=== PATIENT | male | born 1930 | race Caucasian/White ===

== ENCOUNTER 2016-10-16 12:35 | Emergency (ER) | payer MEDICARE, BC ==
[~2016-10-16] VITALS: Ht 172.7 cm; Wt 55.8 kg
[2016-10-16 12:35] VITALS: BP 108/80
[~2016-10-16 12:35] MED LIST: ANAPROX DS550 MG PO; ASPIRIN325 MG; AUGMENTIN 875 M1 TAB PO; CLONIDINE0.2 MG PO; FLOMAX0.4 MG; LISINOPRIL20 MG; LOPRESSOR25 MG; LORAZEPAM0.5 MG; SAW PALMETTO160 M1; VITAMINS; WARFARIN SOD5 MG
[2016-10-16] MEDS ORDERED: ASPIRIN81 M1 PO (12:44)
[2016-10-16] MEDS ORDERED: ATIVAN0.5 MG PO (12:45)
[2016-10-16] MEDS ORDERED: LISINOPRIL5 MG PO (12:46)
[2016-10-16] MEDS ORDERED: FLOMAX0.4 MG PO (12:46)
[2016-10-16] MEDS ORDERED: FLONASE ALLERG9.9 ML NAS (12:47)
[2016-10-16] MEDS ORDERED: AUGMENTIN 875875 MG PO (13:05)
[2016-10-16] MEDS ORDERED: ULTRAM50 MG PO (13:40)
== END 2016-10-16 13:51 | disposition home or self-care (01) ==
LOC: ED 12:35
DX: S71.111A Laceration without foreign body, right thigh, initial encounter (principal); Z98.890 Other specified postprocedural states; Z79.82 Long term (current) use of aspirin; Z88.6 Allergy status to analgesic agent; Z88.8 Allergy status to other drugs, medicaments and biological substances; W55.12XA Struck by horse, initial encounter; Y93.89 Activity, other specified; Y92.89 Other specified places as the place of occurrence of the external cause; Y99.9 Unspecified external cause status

== ENCOUNTER → 2016-10-25 | Outpatient (CLI) | payer MEDICARE, BC ==
[~2016-10-25] MED LIST changes: +ASPIRIN81 M1 PO; +ATIVAN0.5 MG PO; +AUGMENTIN 875875 MG PO; +FLOMAX0.4 MG PO; +FLONASE ALLERG9.9 ML NAS; +LISINOPRIL5 MG PO; +ULTRAM50 MG PO
[2016-10-25 12:38] LABS: IRON 83 ug/dL (65-175); IRON SATURATION 34 %; UIBC 156 ug/dL (110-410)
[2016-10-25 13:28] LABS: FOLIC ACID > 24.00 ng/mL (>5.38)
== END | disposition home or self-care (01) ==
LOC: LAB 11:22
PROVIDERS: Internal Medicine
DX: D64.9 Anemia, unspecified (principal)

== ENCOUNTER → 2016-10-31 | Outpatient (CLI) | payer MEDICARE, BC | END | disposition home or self-care (01) | LOC: US 13:00 | DX: S80.11XA Contusion of right lower leg, initial encounter (principal); M79.89 Other specified soft tissue disorders; X58.XXXA Exposure to other specified factors, initial encounter; Y93.89 Activity, other specified; Y92.89 Other specified places as the place of occurrence of the external cause; Y99.8 Other external cause status ==

== ENCOUNTER 2017-01-08 21:41 | Emergency (ER) | payer MEDICARE, BC ==
[~2017-01-08] VITALS: Ht 172.7 cm; Wt 54.9 kg
[2017-01-08] MEDS ORDERED: LEXAPRO10 MG PO (21:57)
[2017-01-08 22:24] LABS: BASO % 0.6 % (0.0-1.0); EOS # 0.2 10*3/uL (0.0-0.4); HEMATOCRIT 38.4 % (42.0-52.0); HEMOGLOBIN 12.5 g/dl (14.0-18.0); LYMPH # 2.6 10*3/uL (1.3-4.4); LYMPH % 40.8 % (27.0-41.0); MEAN CELL VOLUME 92.3 fl (80.0-94.0); MEAN CORPUSCULAR HGB CONC 32.6 g/dl (33.0-37.0); MONO # 0.8 10*3/uL (0.1-1.0); MONO % 12.2 % (3.0-9.0); NEUT # 2.8 10*3/uL (2.3-7.9); NEUT % 43.2 % (47.0-73.0); PLATELET COUNT AUTOMATED 159 10*3/uL (130-400); RED BLOOD COUNT 4.16 10*6/uL (4.50-5.90); RED CELL DISTRI WIDTH 13.4 % (0-14.5); WHITE BLOOD COUNT 6.4 10*3/uL (4.8-10.8)
[2017-01-08 22:34] LABS: PROTHROMBIN TIME 10.7 SECONDS (9.0-12.4)
[2017-01-08 22:40] LABS: ALBUMIN 3.6 gm/dl (3.1-4.5); ALKALINE PHOSPHATASE 85 U/L (45-117); BILIRUBIN, TOTAL 0.3 mg/dl (0.2-1.0); BUN 42 mg/dl (7-24); CARBON DIOXIDE 26 mmol/L (21-32); CHLORIDE 104 mmol/L (98-107); EST GLOM FILT AFRICAN AMERICAN > 60 ml/min; GLUCOSE 111 mg/dL (65-99); MAGNESIUM 2.2 mg/dL (1.5-2.1); POTASSIUM 4.3 mmol/L (3.5-5.1); SGOT/AST 24 IU/L (3-35); SGPT/ALT 19 U/L (12-78); SODIUM 142 mmol/L (136-145); TOTAL PROTEIN 6.8 gm/dL (6.4-8.2)
[2017-01-08 22:41] LABS: TROPONIN I < 0.015 ng/ml (<0.045)
[2017-01-08 23:39] VITALS: BP 147/54
== END 2017-01-09 00:20 | disposition home or self-care (01) ==
LOC: ED 21:41
PROVIDERS: Student in an Organized Health Care Education/Training Program
DX: I10 Essential (primary) hypertension (principal); F41.9 Anxiety disorder, unspecified; R20.0 Anesthesia of skin; R20.2 Paresthesia of skin; F17.200 Nicotine dependence, unspecified, uncomplicated; Z79.899 Other long term (current) drug therapy

== ENCOUNTER → 2017-02-16 | Outpatient (CLI) | payer MEDICARE, BC ==
[~2017-02-16] MED LIST changes: +LEXAPRO10 MG PO
[2017-02-16 10:27] LABS: HEMATOCRIT 37.5 % (42.0-52.0); HEMOGLOBIN 12.1 g/dl (14.0-18.0); MEAN CELL VOLUME 93.5 fl (80.0-94.0); MEAN CORPUSCULAR HGB 30.2 pg (27.0-31.0); MEAN CORPUSCULAR HGB CONC 32.3 g/dl (33.0-37.0); MEAN PLATELET VOLUME 11.8 fl (9.6-12.3); RED BLOOD COUNT 4.01 10*6/uL (4.50-5.90); RED CELL DISTRI WIDTH 13.5 % (0-14.5); WHITE BLOOD COUNT 4.8 10*3/uL (4.8-10.8)
[2017-02-16 10:44] LABS: ALBUMIN 3.4 gm/dl (3.1-4.5); ALKALINE PHOSPHATASE 83 U/L (45-117); BILIRUBIN, TOTAL 0.4 mg/dl (0.2-1.0); BUN 31 mg/dl (7-24); CARBON DIOXIDE 29 mmol/L (21-32); CHLORIDE 105 mmol/L (98-107); CHOLESTEROL 194 mg/dL (<200); CPK 114 U/L (39-308); EST GLOM FILT AFRICAN AMERICAN > 60 ml/min; GLUCOSE 101 mg/dL (65-99); HDL CHOLESTEROL 77 mg/dl (40-60); LDL CHOLESTEROL 103 mg/dL (9-159); POTASSIUM 4.6 mmol/L (3.5-5.1); SGOT/AST 21 IU/L (3-35); SGPT/ALT 23 U/L (12-78); SODIUM 141 mmol/L (136-145); TOTAL PROTEIN 6.4 gm/dL (6.4-8.2); TRIGLYCERIDES 68 mg/dl (<150); VLDL CHOLESTEROL 14 mg/dL (6-40)
[2017-02-17 08:12] LABS: PROSTATE SPECIFIC AG FREE 1.47 ng/mL; PSA % FREE 40.8 % (.)
== END | disposition home or self-care (01) ==
LOC: LAB 09:52
PROVIDERS: Family Medicine
DX: I25.10 Atherosclerotic heart disease of native coronary artery without angina pectoris (principal); I10 Essential (primary) hypertension; E78.00 Pure hypercholesterolemia, unspecified; E55.9 Vitamin D deficiency, unspecified; R97.20 Elevated prostate specific antigen [PSA]

== ENCOUNTER 2017-03-08 18:36 | Emergency (ER) | payer MEDICARE, BC ==
[~2017-03-08] VITALS: Wt 55.8 kg
[2017-03-08 18:48] VITALS: BP 147/57
[2017-03-08 19:28] LABS: BASO % 0.4 % (0.0-1.0); EOS # 0.2 10*3/uL (0.0-0.4); EOS % 2.5 % (1.0-4.0); HEMATOCRIT 36.4 % (42.0-52.0); HEMOGLOBIN 11.9 g/dl (14.0-18.0); LYMPH # 2.2 10*3/uL (1.3-4.4); LYMPH % 29.7 % (27.0-41.0); MEAN CELL VOLUME 91.7 fl (80.0-94.0); MEAN CORPUSCULAR HGB CONC 32.7 g/dl (33.0-37.0); MEAN PLATELET VOLUME 11.8 fl (9.6-12.3); MONO # 0.8 10*3/uL (0.1-1.0); MONO % 10.9 % (3.0-9.0); NEUT # 4.1 10*3/uL (2.3-7.9); NEUT % 56.2 % (47.0-73.0); PLATELET COUNT AUTOMATED 168 10*3/uL (130-400); RED BLOOD COUNT 3.97 10*6/uL (4.50-5.90); RED CELL DISTRI WIDTH 13.6 % (0-14.5); WHITE BLOOD COUNT 7.3 10*3/uL (4.8-10.8)
[2017-03-08 19:43] LABS: ALBUMIN 3.5 gm/dl (3.1-4.5); ALKALINE PHOSPHATASE 95 U/L (45-117); BILIRUBIN, TOTAL 0.2 mg/dl (0.2-1.0); BUN 31 mg/dl (7-24); CARBON DIOXIDE 28 mmol/L (21-32); CHLORIDE 104 mmol/L (98-107); EST GLOM FILT AFRICAN AMERICAN > 60 ml/min; GLUCOSE 110 mg/dL (65-99); POTASSIUM 4.3 mmol/L (3.5-5.1); SGOT/AST 21 IU/L (3-35); SGPT/ALT 25 U/L (12-78); SODIUM 139 mmol/L (136-145); TOTAL PROTEIN 6.7 gm/dL (6.4-8.2)
== END 2017-03-08 20:03 | disposition home or self-care (01) ==
LOC: ED 18:36
PROVIDERS: Emergency Medicine
DX: F41.9 Anxiety disorder, unspecified (principal); I10 Essential (primary) hypertension; Z98.890 Other specified postprocedural states; Z79.899 Other long term (current) drug therapy

== ENCOUNTER 2017-05-02 23:42 | Emergency (ER) | payer MEDICARE, BC ==
[~2017-05-02] VITALS: Ht 170.1 cm; Wt 55.8 kg
[2017-05-03 00:30] VITALS: BP 189/83
== END 2017-05-03 01:04 | disposition left against medical advice (07) ==
LOC: ED 23:42
DX: I10 Essential (primary) hypertension (principal); Z79.82 Long term (current) use of aspirin

== ENCOUNTER 2017-10-03 21:29 | Emergency (ER) | payer MEDICARE, BC ==
[~2017-10-03] VITALS: Wt 63.5 kg
[2017-10-03 22:08] VITALS: BP 166/70
== END 2017-10-03 22:15 | disposition home or self-care (01) ==
LOC: ED 21:29
DX: I10 Essential (primary) hypertension (principal); Z98.890 Other specified postprocedural states; Z79.899 Other long term (current) drug therapy; Z79.82 Long term (current) use of aspirin

== ENCOUNTER 2017-10-11 17:50 | Emergency (ER) | payer MEDICARE, BC ==
[~2017-10-11] VITALS: Wt 64.9 kg
[2017-10-11 17:58] VITALS: BP 176/94
[2017-10-11] MEDS ORDERED: AMLODIPINE BES2.5 MG PO (18:05)
[2017-10-11] MEDS ORDERED: COUMADIN0.5 MG PO (18:05)
[2017-10-11] MEDS ORDERED: TOPROL XL25 MG PO (18:05)
[2017-10-11] MEDS ORDERED: AUGMENTIN 875875 MG PO (19:46)
[2017-10-12] MEDS ORDERED: 'CLONIDINE0.1 MG PO (12:01)
[2017-10-12] MEDS ORDERED: Coumadin3 MG PO (12:02)
[2017-10-12] MEDS ORDERED: LISINOPRIL5 MG PO (12:30)
[2017-10-12] MEDS ORDERED: FLOMAX0.4 MG PO (12:31)
[2017-10-12] MEDS ORDERED: UNASYN 3GM3 GM/100 M IM (14:54)
== END 2017-10-11 19:52 | disposition home or self-care (01) ==
LOC: ED 17:50
DX: S61.051A Open bite of right thumb without damage to nail, initial encounter (principal); Z79.82 Long term (current) use of aspirin; Z79.899 Other long term (current) drug therapy; W55.11XA Bitten by horse, initial encounter; Y93.89 Activity, other specified; Y92.89 Other specified places as the place of occurrence of the external cause; Y99.8 Other external cause status

== ENCOUNTER 2017-10-12 02:22 | Inpatient (IN) | payer MEDICARE, BC ==
[2017-10-12] VITALS (8 sets, daily range): BP systolic 95–212; BP diastolic 40–83
[~2017-10-12] VITALS: Ht 170.1 cm; Wt 54.0 kg
[~2017-10-12 02:22] MED LIST changes: +AMLODIPINE BES2.5 MG PO; +COUMADIN0.5 MG PO; +TOPROL XL25 MG PO
[2017-10-12 02:44] LABS: BASO # 0.1 10*3/uL (0.0-0.1); BASO % 0.6 % (0.0-1.0); EOS # 0.2 10*3/uL (0.0-0.4); EOS % 2.3 % (1.0-4.0); HEMATOCRIT 35.3 % (42.0-52.0); HEMOGLOBIN 11.7 g/dl (14.0-18.0); LYMPH # 2.3 10*3/uL (1.3-4.4); LYMPH % 29.6 % (27.0-41.0); MEAN CORPUSCULAR HGB 30.2 pg (27.0-31.0); MEAN CORPUSCULAR HGB CONC 33.1 g/dl (33.0-37.0); MEAN PLATELET VOLUME 10.6 fl (9.6-12.3); MONO # 0.9 10*3/uL (0.1-1.0); MONO % 10.9 % (3.0-9.0); NEUT # 4.4 10*3/uL (2.3-7.9); NEUT % 56.3 % (47.0-73.0); PLATELET COUNT AUTOMATED 195 10*3/uL (130-400); RED BLOOD COUNT 3.88 10*6/uL (4.50-5.90); RED CELL DISTRI WIDTH 14.3 % (0-14.5); WHITE BLOOD COUNT 7.8 10*3/uL (4.8-10.8)
[2017-10-12 03:00] LABS: ALBUMIN 3.3 gm/dl (3.1-4.5); ALKALINE PHOSPHATASE 74 U/L (45-117); BUN 19 mg/dl (7-24); CHLORIDE 93 mmol/L (98-107); CREATININE 1.05 mg/dL (0.70-1.30); POTASSIUM 4.2 mmol/L (3.5-5.1); SGOT/AST 15 IU/L (3-35); SGPT/ALT 24 U/L (12-78); SODIUM 130 mmol/L (136-145); TOTAL PROTEIN 6.3 gm/dL (6.4-8.2)
[2017-10-12 03:03] LABS: TROPONIN I < 0.015 ng/ml (<0.045)
[2017-10-12 03:16] LABS: ACT PARTIAL THROMBO TIME 29.5 SECONDS (20.8-31.5); INTERNATIONAL NORM RATIO 1.2 (2.0-3.5)
[2017-10-12 06:50] LABS: FREE T4 1.07 ng/dl (0.76-1.46)
[2017-10-12 06:56] LABS: THYROID STIM HORMONE (HS) 4.16 uIU/ml (0.358-4.75)
[2017-10-12 07:58] LABS: VITAMIN D, 25-HYDROXY 33.1 ng/mL (30-100)
[2017-10-12] MEDS ORDERED: 'CLONIDINE0.1 MG PO (12:01)
[2017-10-12] MEDS ORDERED: Coumadin3 MG PO (12:02)
[2017-10-12] MEDS ORDERED: LISINOPRIL5 MG PO (12:30)
[2017-10-12] MEDS ORDERED: FLOMAX0.4 MG PO (12:31)
[2017-10-12] MEDS ORDERED: UNASYN 3GM3 GM/100 M IM (14:54)
[2017-10-13] VITALS: BP 141/51
[2017-10-13 06:49] LABS: BASO % 0.5 % (0.0-1.0); EOS # 0.1 10*3/uL (0.0-0.4); EOS % 1.5 % (1.0-4.0); HEMATOCRIT 30.7 % (42.0-52.0); HEMOGLOBIN 10.4 g/dl (14.0-18.0); LYMPH # 1.5 10*3/uL (1.3-4.4); LYMPH % 24.5 % (27.0-41.0); MEAN CORPUSCULAR HGB 30.1 pg (27.0-31.0); MEAN CORPUSCULAR HGB CONC 33.9 g/dl (33.0-37.0); MEAN PLATELET VOLUME 10.8 fl (9.6-12.3); MONO # 0.8 10*3/uL (0.1-1.0); MONO % 13.3 % (3.0-9.0); NEUT # 3.5 10*3/uL (2.3-7.9); NEUT % 59.9 % (47.0-73.0); PLATELET COUNT AUTOMATED 184 10*3/uL (130-400); RED BLOOD COUNT 3.45 10*6/uL (4.50-5.90); RED CELL DISTRI WIDTH 14.4 % (0-14.5); WHITE BLOOD COUNT 5.9 10*3/uL (4.8-10.8)
[2017-10-13 07:12] LABS: BUN 13 mg/dl (7-24); CHLORIDE 100 mmol/L (98-107); PHOSPHOROUS 2.6 mg/dL (2.5-4.9); POTASSIUM 4.1 mmol/L (3.5-5.1); SGOT/AST 15 IU/L (3-35); SGPT/ALT 18 U/L (12-78); SODIUM 134 mmol/L (136-145); TOTAL PROTEIN 5.6 gm/dL (6.4-8.2)
[2017-10-13 07:13] LABS: ALKALINE PHOSPHATASE 60 U/L (45-117); CREATININE 0.85 mg/dL (0.70-1.30); INTERNATIONAL NORM RATIO 1.2 (2.0-3.5)
[2017-10-13 08:00] VITALS: BP 143/53
[2017-10-13 12:00] VITALS: BP 178/58
[2017-10-13 16:00] VITALS: BP 167/64
== END 2017-10-13 22:18 | disposition other institution (70) | DRG 605 ==
LOC: ED 02:22 → EDHOLD 04:07 → 5E 04:30
PROVIDERS: Emergency Medicine Emergency Medical Services; Internal Medicine
DX: S61.051A Open bite of right thumb without damage to nail, initial encounter (principal); E87.8 Other disorders of electrolyte and fluid balance, not elsewhere classified; D68.9 Coagulation defect, unspecified; E87.1 Hypo-osmolality and hyponatremia; D64.9 Anemia, unspecified; C44.90 Unspecified malignant neoplasm of skin, unspecified; D72.821 Monocytosis (symptomatic); F41.9 Anxiety disorder, unspecified; I16.0 Hypertensive urgency; I25.10 Atherosclerotic heart disease of native coronary artery without angina pectoris; R00.1 Bradycardia, unspecified; R73.9 Hyperglycemia, unspecified; I10 Essential (primary) hypertension; T14.8XXA Other injury of unspecified body region, initial encounter; Z98.49 Cataract extraction status, unspecified eye; Z80.41 Family history of malignant neoplasm of ovary; Z79.82 Long term (current) use of aspirin; Z79.899 Other long term (current) drug therapy; Y99.8 Other external cause status; Y93.89 Activity, other specified; Y92.89 Other specified places as the place of occurrence of the external cause; W55.11XA Bitten by horse, initial encounter

== ENCOUNTER 2017-12-30 20:25 | Emergency (ER) | payer MEDICARE, BC ==
[~2017-12-30] VITALS: Ht 170.1 cm; Wt 56.7 kg
[~2017-12-30 20:25] MED LIST changes: +'CLONIDINE0.1 MG PO; +Coumadin3 MG PO; +UNASYN 3GM3 GM/100 M IM
[2017-12-30 20:58] LABS: BASO # 0.1 10*3/uL (0.0-0.1); BASO % 0.9 % (0.0-1.0); EOS # 0.1 10*3/uL (0.0-0.4); EOS % 2.3 % (1.0-4.0); HEMATOCRIT 36.6 % (42.0-52.0); HEMOGLOBIN 11.9 g/dl (14.0-18.0); LYMPH # 1.6 10*3/uL (1.3-4.4); LYMPH % 28.7 % (27.0-41.0); MEAN CELL VOLUME 90.1 fl (80.0-94.0); MEAN CORPUSCULAR HGB 29.3 pg (27.0-31.0); MEAN CORPUSCULAR HGB CONC 32.5 g/dl (33.0-37.0); MEAN PLATELET VOLUME 11.5 fl (9.6-12.3); MONO # 0.8 10*3/uL (0.1-1.0); MONO % 14.4 % (3.0-9.0); NEUT % 53.5 % (47.0-73.0); PLATELET COUNT AUTOMATED 193 10*3/uL (130-400); RED BLOOD COUNT 4.06 10*6/uL (4.50-5.90); RED CELL DISTRI WIDTH 13.5 % (0-14.5); WHITE BLOOD COUNT 5.6 10*3/uL (4.8-10.8)
[2017-12-30 21:10] LABS: ACT PARTIAL THROMBO TIME 33.8 SECONDS (20.8-31.5); INTERNATIONAL NORM RATIO 1.5 (2.0-3.5)
[2017-12-30 21:15] LABS: ALBUMIN 3.6 gm/dl (3.1-4.5); ALKALINE PHOSPHATASE 86 U/L (45-117); BUN 23 mg/dl (7-24); CHLORIDE 101 mmol/L (98-107); POTASSIUM 4.2 mmol/L (3.5-5.1); SGOT/AST 23 IU/L (3-35); SGPT/ALT 26 U/L (12-78); SODIUM 134 mmol/L (136-145); TOTAL PROTEIN 6.7 gm/dL (6.4-8.2); TROPONIN I < 0.015 ng/ml (<0.045)
[2017-12-30 22:37] VITALS: BP 175/77
== END 2017-12-31 00:13 | disposition home or self-care (01) ==
LOC: ED 20:25
PROVIDERS: Student in an Organized Health Care Education/Training Program
DX: I10 Essential (primary) hypertension (principal); I25.10 Atherosclerotic heart disease of native coronary artery without angina pectoris; I48.91 Unspecified atrial fibrillation; Z98.890 Other specified postprocedural states; Z79.899 Other long term (current) drug therapy; Z79.01 Long term (current) use of anticoagulants

== ENCOUNTER → 2018-01-10 | Outpatient (CLI) | payer MEDICARE, BC ==
[2018-01-10 14:11] LABS: HEMOGLOBIN 12.5 g/dl (14.0-18.0); MEAN CELL VOLUME 90.7 fl (80.0-94.0); MEAN CORPUSCULAR HGB 29.1 pg (27.0-31.0); MEAN CORPUSCULAR HGB CONC 32.1 g/dl (33.0-37.0); MEAN PLATELET VOLUME 11.3 fl (9.6-12.3); RED BLOOD COUNT 4.3 10*6/uL (4.50-5.90); RED CELL DISTRI WIDTH 13.9 % (0-14.5); WHITE BLOOD COUNT 5.6 10*3/uL (4.8-10.8)
[2018-01-10 14:38] LABS: ALBUMIN 3.7 gm/dl (3.1-4.5); ALKALINE PHOSPHATASE 84 U/L (45-117); BUN 33 mg/dl (7-24); CHLORIDE 101 mmol/L (98-107); CHOLESTEROL 212 mg/dL (<200); HDL CHOLESTEROL 85 mg/dl (40-60); LDL CHOLESTEROL 107 mg/dL (9-159); POTASSIUM 4.8 mmol/L (3.5-5.1); SGOT/AST 18 IU/L (3-35); SGPT/ALT 26 U/L (12-78); SODIUM 135 mmol/L (136-145); TOTAL PROTEIN 6.8 gm/dL (6.4-8.2); TRIGLYCERIDES 98 mg/dl (<150); VLDL CHOLESTEROL 20 mg/dL (6-40)
[2018-01-10 14:52] LABS: INTERNATIONAL NORM RATIO 1.5 (2.0-3.5)
== END | disposition home or self-care (01) ==
LOC: LAB 13:50
PROVIDERS: Family Medicine
DX: I25.10 Atherosclerotic heart disease of native coronary artery without angina pectoris (principal); E55.9 Vitamin D deficiency, unspecified; E74.9 Disorder of carbohydrate metabolism, unspecified; D64.9 Anemia, unspecified; Z79.01 Long term (current) use of anticoagulants; Z79.899 Other long term (current) drug therapy

== ENCOUNTER 2018-01-16 00:02 | Emergency (ER) | payer MEDICARE, BC ==
[~2018-01-16] VITALS: Ht 167.6 cm; Wt 68.0 kg
[2018-01-16 00:34] LABS: BASO # 0.1 10*3/uL (0.0-0.1); BASO % 0.8 % (0.0-1.0); EOS # 0.2 10*3/uL (0.0-0.4); EOS % 2.5 % (1.0-4.0); HEMATOCRIT 39.2 % (42.0-52.0); HEMOGLOBIN 12.6 g/dl (14.0-18.0); LYMPH # 2.2 10*3/uL (1.3-4.4); LYMPH % 33.9 % (27.0-41.0); MEAN CELL VOLUME 89.5 fl (80.0-94.0); MEAN CORPUSCULAR HGB 28.8 pg (27.0-31.0); MEAN CORPUSCULAR HGB CONC 32.1 g/dl (33.0-37.0); MEAN PLATELET VOLUME 11.5 fl (9.6-12.3); MONO # 0.9 10*3/uL (0.1-1.0); MONO % 13.4 % (3.0-9.0); NEUT # 3.2 10*3/uL (2.3-7.9); NEUT % 49.2 % (47.0-73.0); PLATELET COUNT AUTOMATED 228 10*3/uL (130-400); RED BLOOD COUNT 4.38 10*6/uL (4.50-5.90); RED CELL DISTRI WIDTH 13.7 % (0-14.5); WHITE BLOOD COUNT 6.4 10*3/uL (4.8-10.8)
[2018-01-16 00:45] LABS: ACT PARTIAL THROMBO TIME 36.1 SECONDS (20.8-31.5); INTERNATIONAL NORM RATIO 1.9 (2.0-3.5)
[2018-01-16 00:50] LABS: ALBUMIN 3.7 gm/dl (3.1-4.5); ALKALINE PHOSPHATASE 87 U/L (45-117); BUN 26 mg/dl (7-24); CHLORIDE 102 mmol/L (98-107); CREATININE 1.14 mg/dL (0.70-1.30); POTASSIUM 4.2 mmol/L (3.5-5.1); SGOT/AST 18 IU/L (3-35); SGPT/ALT 27 U/L (12-78); SODIUM 137 mmol/L (136-145)
[2018-01-16 00:55] VITALS: BP 159/64
[2018-01-16 00:55] LABS: TROPONIN I < 0.015 ng/ml (<0.045)
== END 2018-01-16 01:16 | disposition home or self-care (01) ==
LOC: ED 00:02
PROVIDERS: Student in an Organized Health Care Education/Training Program
DX: I10 Essential (primary) hypertension (principal); I25.10 Atherosclerotic heart disease of native coronary artery without angina pectoris; I48.91 Unspecified atrial fibrillation; Z98.890 Other specified postprocedural states; Z79.899 Other long term (current) drug therapy; Z79.01 Long term (current) use of anticoagulants

== ENCOUNTER 2018-02-27 20:25 | Emergency (ER) | payer MEDICARE, BC ==
[~2018-02-27] VITALS: Ht 172.7 cm; Wt 55.8 kg
--- NOTE | ~2018-02-27 | EKG ---
[place], [place] ELECTROCARDIOGRAM REPORT NAME: ESA RACHEL UNIT #: [id number] ROOM: DOCTOR: EPIPHANY DRAFT REPORT BIRTHDATE: [birth year] [facility] Test Date: 2018-02-27 Test Time: 20:50:19 Pat Name: ESA RACHEL Department: Room: Gender: Development Analyst: : 1930 Requested By: NICHOLE RICO Order Number: [id number] Reading MD: Cooper Heck MD Measurements Intervals [place] Rate: 56 P: -57 [place]: 246 QRS: 0 QRSD: 99 T: 48 QT: 409 QTc: 395 Interpretive Statements Sinus rhythm with sinus arrhythmia Prolonged [place] interval Electronically Signed On 02-27-2018 20:00:52 PDT by Cooper Heck MD CM:EKGRPT:ELECTROCARDIOGRAM REPORT [id number] NICHOLE SLAUGHTER DRAFT REPORT NICHOLE RICO DO
[2018-02-27 20:37] LABS: BILIRUBIN NEGATIVE (NEGATIVE); BLOOD NEGATIVE (NEGATIVE); CLARITY CLEAR (CLEAR); COLOR YELLOW (YELLOW); GLUCOSE NEGATIVE (NEGATIVE); KETONE NEGATIVE (NEGATIVE); LEUKO ESTERASE NEGATIVE (NEGATIVE); NITRITE NEGATIVE (NEGATIVE); PH 6.5 (5.0-9.0); UROBILINOGEN 0.2 E.U./dl (0.2-1.0)
[2018-02-27 20:50] LABS: EPITHELIAL CELLS 0-2; RBC 0-2 rbc/hpf (0-2)
[2018-02-27 20:51] LABS: BACTERIA TRACE
[2018-02-27 20:56] LABS: BASO % 0.8 % (0.0-1.0); EOS # 0.2 10*3/uL (0.0-0.4); EOS % 3.2 % (1.0-4.0); HEMATOCRIT 38.8 % (42.0-52.0); HEMOGLOBIN 12.4 g/dl (14.0-18.0); LYMPH # 1.8 10*3/uL (1.3-4.4); LYMPH % 33.1 % (27.0-41.0); MEAN CELL VOLUME 88.4 fl (80.0-94.0); MEAN CORPUSCULAR HGB 28.2 pg (27.0-31.0); MEAN PLATELET VOLUME 10.5 fl (9.6-12.3); MONO # 0.7 10*3/uL (0.1-1.0); MONO % 13.5 % (3.0-9.0); NEUT # 2.6 10*3/uL (2.3-7.9); NEUT % 49.2 % (47.0-73.0); PLATELET COUNT AUTOMATED 227 10*3/uL (130-400); RED BLOOD COUNT 4.39 10*6/uL (4.50-5.90); RED CELL DISTRI WIDTH 15.4 % (0-14.5); WHITE BLOOD COUNT 5.3 10*3/uL (4.8-10.8)
[2018-02-27 21:06] LABS: ACT PARTIAL THROMBO TIME 33.9 SECONDS (20.8-31.5); INTERNATIONAL NORM RATIO 1.6 (2.0-3.5)
[2018-02-27 21:13] LABS: ALBUMIN 3.6 gm/dl (3.1-4.5); ALKALINE PHOSPHATASE 85 U/L (45-117); BUN 24 mg/dl (7-24); CHLORIDE 98 mmol/L (98-107); CREATININE 1.26 mg/dL (0.70-1.30); POTASSIUM 4.5 mmol/L (3.5-5.1); SGOT/AST 20 IU/L (3-35); SGPT/ALT 27 U/L (12-78); SODIUM 133 mmol/L (136-145); TOTAL PROTEIN 6.7 gm/dL (6.4-8.2)
[2018-02-27 21:20] LABS: TROPONIN I < 0.015 ng/ml (<0.045)
[2018-02-27 21:35] VITALS: BP 174/78
== END 2018-02-27 21:38 | disposition left against medical advice (07) ==
LOC: ED 20:25
PROVIDERS: Student in an Organized Health Care Education/Training Program
DX: I10 Essential (primary) hypertension (principal); I25.10 Atherosclerotic heart disease of native coronary artery without angina pectoris; Z79.899 Other long term (current) drug therapy; Z98.890 Other specified postprocedural states

== ENCOUNTER 2018-04-20 22:04 | Emergency (ER) | payer MEDICARE, BC ==
[~2018-04-20] VITALS: Ht 172.7 cm; Wt 63.5 kg
--- NOTE | ~2018-04-20 | EKG ---
[place], [place] ELECTROCARDIOGRAM REPORT NAME: ESA RACHEL UNIT #: [id number] ROOM: DOCTOR: EPIPHANY DRAFT REPORT BIRTHDATE: [birth year] [facility] Test Date: 2018-04-20 Test Time: 23:02:33 Pat Name: ESA RACHEL Department: ER Room: 8 Gender: M Half Backer: : 1930 Requested By: VALERIE BECKFORD Order Number: [id number] Reading MD: Cooper Heck MD Measurements Intervals [place] Rate: 60 P: -38 [place]: 274 QRS: -23 QRSD: 96 T: 37 QT: 390 QTc: 390 Interpretive Statements Sinus rhythm Prolonged [place] interval Consider left atrial enlargement Borderline left axis deviation Compared to ECG 03/30/2018 22:05:45 Atrial premature complex(es) no longer present Electronically Signed On 04-21-2018 12:57:28 PDT by Cooper Heck MD CM:EKGRPT:ELECTROCARDIOGRAM REPORT [id number] VALERIE BECKFORD MD EPIPHANY DRAFT REPORT VALERIE BECKFORD MD
[2018-04-20 23:07] LABS: BASO # 0.1 10*3/uL (0.0-0.1); EOS # 0.1 10*3/uL (0.0-0.4); HEMATOCRIT 38.9 % (42.0-52.0); HEMOGLOBIN 12.7 g/dl (14.0-18.0); LYMPH # 1.9 10*3/uL (1.3-4.4); LYMPH % 30.9 % (27.0-41.0); MEAN CELL VOLUME 89.4 fl (80.0-94.0); MEAN CORPUSCULAR HGB 29.2 pg (27.0-31.0); MEAN CORPUSCULAR HGB CONC 32.6 g/dl (33.0-37.0); MEAN PLATELET VOLUME 11.1 fl (9.6-12.3); MONO # 0.9 10*3/uL (0.1-1.0); MONO % 14.1 % (3.0-9.0); NEUT # 3.1 10*3/uL (2.3-7.9); NEUT % 51.8 % (47.0-73.0); PLATELET COUNT AUTOMATED 241 10*3/uL (130-400); RED BLOOD COUNT 4.35 10*6/uL (4.50-5.90); RED CELL DISTRI WIDTH 15.2 % (0-14.5)
[2018-04-20 23:15] LABS: INTERNATIONAL NORM RATIO 1.7 (2.0-3.5)
[2018-04-20 23:29] LABS: ALBUMIN 3.5 gm/dl (3.1-4.5); ALKALINE PHOSPHATASE 90 U/L (45-117); BUN 21 mg/dl (7-24); CHLORIDE 98 mmol/L (98-107); CREATININE 1.23 mg/dL (0.70-1.30); POTASSIUM 4.7 mmol/L (3.5-5.1); SGOT/AST 32 IU/L (3-35); SGPT/ALT 27 U/L (12-78); SODIUM 132 mmol/L (136-145); TOTAL PROTEIN 6.9 gm/dL (6.4-8.2); TROPONIN I < 0.015 ng/ml (<0.045)
[2018-04-21 00:26] VITALS: BP 166/70
[2018-04-21 00:36] LABS: BILIRUBIN NEGATIVE (NEGATIVE); BLOOD TRACE-INTACT (NEGATIVE); CLARITY CLEAR (CLEAR); COLOR YELLOW (YELLOW); GLUCOSE NEGATIVE (NEGATIVE); KETONE NEGATIVE (NEGATIVE); LEUKO ESTERASE NEGATIVE (NEGATIVE); NITRITE NEGATIVE (NEGATIVE); PH 6.5 (5.0-9.0); UROBILINOGEN 0.2 E.U./dl (0.2-1.0)
[2018-04-21] MEDS ORDERED: AUGMENTIN 875875 MG PO (01:27)
== END 2018-04-21 01:23 | disposition home or self-care (01) ==
LOC: ED 22:04
PROVIDERS: Emergency Medicine Emergency Medical Services
DX: S61.452A Open bite of left hand, initial encounter (principal); S00.83XA Contusion of other part of head, initial encounter; I10 Essential (primary) hypertension; Z98.890 Other specified postprocedural states; Z79.899 Other long term (current) drug therapy; W54.0XXA Bitten by dog, initial encounter; W01.198A Fall on same level from slipping, tripping and stumbling with subsequent striking against other object, initial encounter; Y93.89 Activity, other specified; Y92.099 Unspecified place in other non-institutional residence as the place of occurrence of the external cause; Y99.9 Unspecified external cause status

== ENCOUNTER → 2018-06-18 | Outpatient (CLI) | payer MEDICARE, BC ==
[2018-06-18 13:36] LABS: BASO % 0.7 % (0.0-1.0); EOS # 0.1 10*3/uL (0.0-0.4); EOS % 1.8 % (1.0-4.0); HEMATOCRIT 40.8 % (42.0-52.0); HEMOGLOBIN 13.2 g/dl (14.0-18.0); LYMPH # 1.8 10*3/uL (1.3-4.4); LYMPH % 32.1 % (27.0-41.0); MEAN CELL VOLUME 91.5 fl (80.0-94.0); MEAN CORPUSCULAR HGB 29.6 pg (27.0-31.0); MEAN CORPUSCULAR HGB CONC 32.4 g/dl (33.0-37.0); MEAN PLATELET VOLUME 10.5 fl (9.6-12.3); MONO # 0.7 10*3/uL (0.1-1.0); MONO % 12.3 % (3.0-9.0); NEUT % 52.7 % (47.0-73.0); PLATELET COUNT AUTOMATED 242 10*3/uL (130-400); RED BLOOD COUNT 4.46 10*6/uL (4.50-5.90); RED CELL DISTRI WIDTH 14.4 % (0-14.5); WHITE BLOOD COUNT 5.7 10*3/uL (4.8-10.8)
[2018-06-18 14:02] LABS: ALBUMIN 3.5 gm/dl (3.1-4.5); ALKALINE PHOSPHATASE 86 U/L (45-117); BUN 27 mg/dl (7-24); CHLORIDE 98 mmol/L (98-107); POTASSIUM 4.7 mmol/L (3.5-5.1); SGOT/AST 21 IU/L (3-35); SGPT/ALT 23 U/L (12-78); SODIUM 133 mmol/L (136-145); TOTAL PROTEIN 6.8 gm/dL (6.4-8.2)
== END | disposition home or self-care (01) ==
LOC: LAB 13:14
PROVIDERS: Internal Medicine Cardiovascular Disease
DX: I10 Essential (primary) hypertension (principal); I48.0 Paroxysmal atrial fibrillation

== ENCOUNTER 2018-08-12 21:55 | Inpatient (IN) | payer MEDICARE, BC ==
[~2018-08-12] VITALS: Ht 170.2 cm; Wt 58.2 kg
--- NOTE | ~2018-08-12 | EKG ---
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 Coordinator: Noemí Tong : 1930 Requested By: SHAYY LUDWIG DNP Order Number: [id number] Reading MD: Cooper Heck MD Measurements Intervals [place] Rate: 49 P: -24 MA: 266 QRS: -16 QRSD: 98 T: 42 QT: 431 QTc: 390 Interpretive Statements Slow sinus arrhythmia Prolonged [place] interval Probable left atrial enlargement Borderline left axis deviation Abnormal R-wave progression, early transition Compared to ECG 08/09/2018 21:59:25 T-wave abnormality no longer present Electronically Signed On 08-13-2018 11:44:51 PST by Cooper Heck MD CM:EKGRPT:ELECTROCARDIOGRAM REPORT [id number] SHAYY LUDWIG DNP EPIPHANY DRAFT REPORT SHAYY LUDWIG DNP
[~2018-08-12 21:55] MED LIST changes: +ZANTAC 7575 M1 PO
[2018-08-12 21:56] VITALS: BP 190/75
[2018-08-12 22:26] VITALS: BP 178/84
[2018-08-12 22:41] LABS: BASO % 0.7 % (0.0-1.0); EOS # 0.3 10*3/uL (0.0-0.4); EOS % 5.3 % (1.0-4.0); HEMATOCRIT 35.4 % (42.0-52.0); HEMOGLOBIN 11.5 g/dl (14.0-18.0); LYMPH # 1.8 10*3/uL (1.3-4.4); LYMPH % 32.3 % (27.0-41.0); MEAN CELL VOLUME 91.5 fl (80.0-94.0); MEAN CORPUSCULAR HGB 29.7 pg (27.0-31.0); MEAN CORPUSCULAR HGB CONC 32.5 g/dl (33.0-37.0); MEAN PLATELET VOLUME 10.9 fl (9.6-12.3); MONO # 0.8 10*3/uL (0.1-1.0); MONO % 14.7 % (3.0-9.0); NEUT # 2.6 10*3/uL (2.3-7.9); NEUT % 46.8 % (47.0-73.0); PLATELET COUNT AUTOMATED 247 10*3/uL (130-400); RED BLOOD COUNT 3.87 10*6/uL (4.50-5.90); RED CELL DISTRI WIDTH 14.8 % (0-14.5); WHITE BLOOD COUNT 5.5 10*3/uL (4.8-10.8)
[2018-08-12 22:51] LABS: ACT PARTIAL THROMBO TIME 34.6 SECONDS (20.8-31.5); INTERNATIONAL NORM RATIO 1.7 (2.0-3.5)
[2018-08-12 22:58] LABS: ALBUMIN 3.3 gm/dl (3.1-4.5); ALKALINE PHOSPHATASE 87 U/L (45-117); BUN 32 mg/dl (7-24); CHLORIDE 99 mmol/L (98-107); CREATININE 1.04 mg/dL (0.70-1.30); POTASSIUM 4.4 mmol/L (3.5-5.1); SGOT/AST 19 IU/L (3-35); SGPT/ALT 25 U/L (12-78); SODIUM 132 mmol/L (136-145); TOTAL PROTEIN 6.5 gm/dL (6.4-8.2)
[2018-08-12 22:59] VITALS: BP 184/74
[2018-08-12 22:59] LABS: TROPONIN I < 0.015 ng/ml (<0.045)
[2018-08-12 23:25] VITALS: BP 181/73
[2018-08-12 23:34] VITALS: BP 173/72
[2018-08-12 23:44] VITALS: BP 163/64
[2018-08-12] MEDS ORDERED: COUMADIN5 M2 PO (23:51)
[2018-08-12] MEDS ORDERED: HYDRALAZINE HCL MC (23:51)
[2018-08-13] VITALS (8 sets, daily range): BP systolic 145–186; BP diastolic 50–78
[2018-08-13 00:35] LABS: BILIRUBIN NEGATIVE (NEGATIVE); BLOOD NEGATIVE (NEGATIVE); CLARITY CLEAR (CLEAR); COLOR YELLOW (YELLOW); GLUCOSE NEGATIVE (NEGATIVE); KETONE NEGATIVE (NEGATIVE); LEUKO ESTERASE NEGATIVE (NEGATIVE); NITRITE NEGATIVE (NEGATIVE); UROBILINOGEN 0.2 E.U./dl (0.2-1.0)
--- NOTE | 2018-08-13 00:35 | NUR ---
A 87, admitted to , under the services of SANJUANA Rocha DO with a diagnosis of HEPERTENSIVE EMERGENCY, CHEST PAIN. Chief complaint is BP AT HOME ELEVATED ALL DAY PER PT. PT. IS VERY ANXIOUS ABOUT BP AND TAKES THEM OFTEN AND HOME. PT. HAD REPORT LEFT EAR PAIN AND WAS SEEN BY PCP AND PERSCRIBED DROPS FOR HIS EARS.. Patient arrived via stretcher from ER. Monitor applied. Initial assessment completed. Vital signs taken and recorded. SANJUANA ROCHA DO notified of admission to the unit. Orders received. See assessment for past medical history, medications and allergies. Patient and/or family oriented to unit. [facility] visitation policy reviewed. Clothing/patient valuable form completed. JOVANNI INFANTE J
[2018-08-13 00:58] LABS: BACTERIA TRACE; WBC 0-2 wbc/hpf (0-5)
[2018-08-13] MEDS ORDERED: HYDRALAZINE10 MG PO (01:05)
[2018-08-13] MEDS ORDERED: ECPIRIN325 MG PO (01:07)
--- NOTE | 2018-08-13 02:00 | NUR ---
CALLED DR. CHAVEZ AND NOTIFIED HIM THAT HOME MEDICATION WERE RECONCILLED PER EX AND PATIENT. PT. DID SAY HE IS ONLY TAKING HALF OF HIS ATIVAN CAUSE HE'S TRYING GET OFF OF IT. TAKING HIS PRN BP MEDICATION ALOT IN THE LAST FEW DAYS PER HIS EX- THAT LIVES WITH HIM. DR. CHAVEZ WANTS HOME MEDICATION RECONCILLED WITH PHARAMCY IN AM. DR. CHAVEZ ALSO NOTIFIED OF NEGATIVE ORTHOSTATIC AND WHAT BP MEDS WERE.
--- NOTE | 2018-08-13 03:21 | NUR ---
CARDINAL CHATTERJEE CALLED AND WANTED IV HYDRALAZINE TO Q4-6H FORM Q2H
--- NOTE | 2018-08-13 08:14 | NUR ---
DR RODRIGUEZ MADE AWARE OF PT'S ELEVATED BP OF 186/58 AND ALSO C/O ANXIETY AND WOULD LIKE HIS ATIVAN HOME DOSE ORDERED.
--- NOTE | 2018-08-13 09:00 | NUR ---
Telephonic Case Manager in to talk to patient. Patient states lives at home with girlfriend. There are few steps in the home. Physician: yeimi trimble [facility] Home health services: none Patient's level of ADLs: INDEPENDENT Patient has working utilities: all working DME: quad cane and walker Follow-up physician's appointment after d/c: will be made by hospitalist nurse director upon discharge Does patient want to access PORTAL?: no Discharge plan discussed with patient, girlfriend present, patient states he lives at home with girlfriend, he states he usually gets around fine, is independent in adls, patient states he has a quad cane and a walker but doesn't use either of them. discussed with him frequent falls he has been having, also a short term long term for rehab prior to going back home, patient and girlfriend stated that patient only fell because he slipped on ice going to his barn. patient stated that he and his girlfriend will be going to [place] in the next few weeks and staying there the rest of the winter. case management will follow for any home needs. VI MIXON
--- NOTE | 2018-08-13 10:30 | NUR ---
PT ASSISTED OUT OF BED TO RECLINER CHAIR AND BODY ALARM PLACED ON PT DUE TO FALLS AT HOME AND UNSTEADINESS.
--- NOTE | 2018-08-13 11:03 | NUR ---
Occupational Therapy evaluation completed on 4 with full eval to follow. Precautions include fall risk, personal alarm, IV UE. Patient is low complexity level 42494 via chart review, testing and eval. Recommend SNF v.s return home with . Thank you for this referral. Linnette Gonzales OtR/L
--- NOTE | 2018-08-13 12:33 | NUR ---
ISABELA'S DC'D PER DR LOVETT. PT AMBULATORY IN THE HALLWAY AT THIS TIME.
--- NOTE | 2018-08-13 19:07 | NUR ---
Pt declined evaluation this date reporting he does not feel needs PT and that he is leaving tomorrow. Girlfriend and daughter in law were in room and encouraged pt to participate, but he continues to decline. Will attempt evaluation at later date. Heike Otto, PT
[2018-08-14] VITALS: BP 171/60
[2018-08-14 00:25] VITALS: BP 170/68
--- NOTE | 2018-08-14 00:26 | NUR ---
CALLED DR. CHAVEZ AND NOTIFIED HIM OF BP 170/68. ORDERS TO BE RECIEVED.
[2018-08-14 01:00] VITALS: BP 174/60
--- NOTE | 2018-08-14 01:00 | NUR ---
PT. WANTED BP RECHECKED BEFORE AGREEING TO HAVE IV APRESOLINE. 174/60 MANUALLY. PT. AGREED TO IV MED.
[2018-08-14 02:00] VITALS: BP 152/52
--- NOTE | 2018-08-14 02:00 | NUR ---
IV APRESOLINE EFFECTIVE FOR BP
--- NOTE | 2018-08-14 02:28 | NUR ---
24 HR chart check completed.
[2018-08-14 06:21] LABS: BASO % 0.7 % (0.0-1.0); EOS # 0.3 10*3/uL (0.0-0.4); EOS % 4.4 % (1.0-4.0); HEMATOCRIT 36.6 % (42.0-52.0); HEMOGLOBIN 11.7 g/dl (14.0-18.0); LYMPH # 1.7 10*3/uL (1.3-4.4); LYMPH % 28.8 % (27.0-41.0); MEAN CELL VOLUME 90.6 fl (80.0-94.0); MEAN PLATELET VOLUME 11.4 fl (9.6-12.3); MONO # 0.9 10*3/uL (0.1-1.0); MONO % 15.4 % (3.0-9.0); NEUT % 50.5 % (47.0-73.0); PLATELET COUNT AUTOMATED 248 10*3/uL (130-400); RED BLOOD COUNT 4.04 10*6/uL (4.50-5.90); RED CELL DISTRI WIDTH 14.7 % (0-14.5); WHITE BLOOD COUNT 5.9 10*3/uL (4.8-10.8)
[2018-08-14 06:30] LABS: ALBUMIN 2.9 gm/dl (3.1-4.5); ALKALINE PHOSPHATASE 79 U/L (45-117); CHLORIDE 102 mmol/L (98-107); CHOLESTEROL 213 mg/dL (<200); CREATININE 0.89 mg/dL (0.70-1.30); FREE T4 0.96 ng/dl (0.76-1.46); HDL CHOLESTEROL 86 mg/dl (40-60); LDL CHOLESTEROL 114 mg/dL (9-159); PHOSPHOROUS 2.1 mg/dL (2.5-4.9); SGOT/AST 18 IU/L (3-35); SGPT/ALT 13 U/L (12-78); SODIUM 136 mmol/L (136-145); TOTAL PROTEIN 6.3 gm/dL (6.4-8.2); TRIGLYCERIDES 64 mg/dl (<150); VLDL CHOLESTEROL 13 mg/dL (6-40)
[2018-08-14 06:41] LABS: BUN 22 mg/dl (7-24)
[2018-08-14 06:47] LABS: ACT PARTIAL THROMBO TIME 34.5 SECONDS (20.8-31.5); INTERNATIONAL NORM RATIO 1.7 (2.0-3.5)
[2018-08-14 08:00] VITALS: BP 140/56
--- NOTE | 2018-08-14 09:00 | NUR ---
case management visits with patient, patient states he will be going home when able and denies any home needs
[2018-08-14] MEDS ORDERED: AMLODIPINE BESYL5 MG PO (09:19)
[2018-08-14] MEDS ORDERED: LISINOPRIL20 MG PO (09:19)
--- NOTE | 2018-08-14 10:25 | NUR ---
Discharge instructions reviewed with patient/family. Patient receptive and verbalizes understanding. Follow-up care arranged. Written instructions given to patient/family. DARNELL POSADA
== END 2018-08-14 10:06 | disposition home or self-care (01) | DRG 205 ==
LOC: ED 21:55 → 4E 23:44 → EDHOLD 23:44 → 4E 23:58
PROVIDERS: Family Medicine; Nurse Practitioner Family; ADMIT Internal Medicine
DX: M94.0 Chondrocostal junction syndrome [Tietze] (principal); N17.0 Acute kidney failure with tubular necrosis; I16.1 Hypertensive emergency; E87.1 Hypo-osmolality and hyponatremia; R07.9 Chest pain, unspecified; D64.9 Anemia, unspecified; D70.9 Neutropenia, unspecified; R26.2 Difficulty in walking, not elsewhere classified; R79.1 Abnormal coagulation profile; E83.41 Hypermagnesemia; H69.82 Other specified disorders of Eustachian tube, left ear; I10 Essential (primary) hypertension; R00.1 Bradycardia, unspecified; I25.10 Atherosclerotic heart disease of native coronary artery without angina pectoris; F41.9 Anxiety disorder, unspecified; K21.9 Gastro-esophageal reflux disease without esophagitis; I48.0 Paroxysmal atrial fibrillation; Z95.5 Presence of coronary angioplasty implant and graft; Z80.41 Family history of malignant neoplasm of ovary; Z85.828 Personal history of other malignant neoplasm of skin; Z79.82 Long term (current) use of aspirin; Z79.899 Other long term (current) drug therapy; Z79.01 Long term (current) use of anticoagulants; W18.30XD Fall on same level, unspecified, subsequent encounter

== ENCOUNTER → 2018-12-03 | Outpatient (CLI) | payer MEDICARE, BC ==
[~2018-12-03] MED LIST changes: +AMLODIPINE BESYL5 MG PO; +COUMADIN5 M2 PO; +ECPIRIN325 MG PO; +HYDRALAZINE HCL MC; +HYDRALAZINE10 MG PO; +LISINOPRIL20 MG PO
== END | disposition home or self-care (01) ==
LOC: ORTHO 00:14
DX: S42.302A Unspecified fracture of shaft of humerus, left arm, initial encounter for closed fracture (principal); M19.042 Primary osteoarthritis, left hand; W19.XXXA Unspecified fall, initial encounter; Y93.89 Activity, other specified; Y92.89 Other specified places as the place of occurrence of the external cause; Y99.8 Other external cause status

== ENCOUNTER 2019-04-14 09:07 | Emergency (ER) | payer MEDICARE, BC ==
[~2019-04-14] VITALS: Ht 170.1 cm; Wt 55.8 kg
--- NOTE | ~2019-04-14 | EKG ---
[place], [place] ELECTROCARDIOGRAM REPORT NAME: ESA RACHEL UNIT #: [id number] ROOM: DOCTOR: EPIPHANY DRAFT REPORT BIRTHDATE: [birth year] [facility] Test Date: 2019-04-14 Test Time: 09:38:19 Pat Name: ESA RACHEL Department: Room: Gender: Customer Counter Associate: Doris Castro : 1930 Requested By: MIC FERRARO Order Number: [id number] Reading MD: Anabela Castellanos MD Measurements Intervals [place] Rate: 77 P: -49 [place]: 328 QRS: -23 QRSD: 92 T: 63 QT: 361 QTc: 409 Interpretive Statements Sinus or ectopic atrial rhythm Prolonged [place] interval Borderline left axis deviation Compared to ECG 08/12/2018 22:44:19 Ectopic atrial rhythm now present Sinus arrhythmia no longer present Electronically Signed On 04-14-2019 14:40:58 PDT by Anabela Castellanos MD CM:EKGRPT:ELECTROCARDIOGRAM REPORT [id number] MIC FERRARO MD EPIPHANY DRAFT REPORT MIC FERRARO MD
[2019-04-14 09:08] VITALS: BP 159/65
[2019-04-14 09:33] LABS: BASO % 0.8 % (0.0-1.0); EOS # 0.1 10*3/uL (0.0-0.4); EOS % 1.9 % (1.0-4.0); HEMOGLOBIN 12.7 g/dl (14.0-18.0); LYMPH # 1.4 10*3/uL (1.3-4.4); LYMPH % 26.4 % (27.0-41.0); MEAN CELL VOLUME 93.3 fl (80.0-94.0); MEAN CORPUSCULAR HGB 30.4 pg (27.0-31.0); MEAN CORPUSCULAR HGB CONC 32.6 g/dl (33.0-37.0); MEAN PLATELET VOLUME 10.7 fl (9.6-12.3); MONO # 0.7 10*3/uL (0.1-1.0); MONO % 13.3 % (3.0-9.0); NEUT % 57.4 % (47.0-73.0); PLATELET COUNT AUTOMATED 243 10*3/uL (130-400); RED BLOOD COUNT 4.18 10*6/uL (4.50-5.90); WHITE BLOOD COUNT 5.2 10*3/uL (4.8-10.8)
[2019-04-14 09:45] LABS: BUN 19 mg/dl (7-24); CHLORIDE 98 mmol/L (98-107); CREATININE 1.07 mg/dL (0.70-1.30); POTASSIUM 4.4 mmol/L (3.5-5.1); SODIUM 131 mmol/L (136-145)
[2019-04-14 09:52] LABS: ACT PARTIAL THROMBO TIME 36.7 SECONDS (20.0-32.1)
== END 2019-04-14 11:20 | disposition short-term general hospital (02) ==
LOC: ED 09:07
PROVIDERS: Emergency Medicine
DX: S06.309A Unspecified focal traumatic brain injury with loss of consciousness of unspecified duration, initial encounter (principal); S01.01XA Laceration without foreign body of scalp, initial encounter; S61.411A Laceration without foreign body of right hand, initial encounter; R55 Syncope and collapse; I48.91 Unspecified atrial fibrillation; I25.10 Atherosclerotic heart disease of native coronary artery without angina pectoris; K21.9 Gastro-esophageal reflux disease without esophagitis; I10 Essential (primary) hypertension; Z98.890 Other specified postprocedural states; Z79.82 Long term (current) use of aspirin; Z79.01 Long term (current) use of anticoagulants; Z79.899 Other long term (current) drug therapy; W55.12XA Struck by horse, initial encounter; Y93.89 Activity, other specified; Y92.89 Other specified places as the place of occurrence of the external cause; Y99.9 Unspecified external cause status

== ENCOUNTER → 2019-05-08 | Outpatient (CLI) | payer MEDICARE, BC | END | disposition home or self-care (01) | LOC: CARD 12:32 | DX: I34.0 Nonrheumatic mitral (valve) insufficiency (principal); I35.8 Other nonrheumatic aortic valve disorders; I51.7 Cardiomegaly ==

== ENCOUNTER 2019-05-20 21:41 | Emergency (ER) | payer MEDICARE, BC ==
[~2019-05-20] VITALS: Ht 167.6 cm; Wt 59.0 kg
[2019-05-21 00:25] LABS: INTERNATIONAL NORM RATIO 0.9 (2.0-3.5)
[2019-05-21 00:30] LABS: BASO % 0.7 % (0.0-1.0); EOS # 0.2 10*3/uL (0.0-0.4); EOS % 2.9 % (1.0-4.0); HEMOGLOBIN 12.7 g/dl (14.0-18.0); LYMPH % 36.6 % (27.0-41.0); MEAN CELL VOLUME 94.4 fl (80.0-94.0); MEAN CORPUSCULAR HGB 30.8 pg (27.0-31.0); MEAN CORPUSCULAR HGB CONC 32.6 g/dl (33.0-37.0); MEAN PLATELET VOLUME 11.1 fl (9.6-12.3); MONO # 0.7 10*3/uL (0.1-1.0); MONO % 12.6 % (3.0-9.0); NEUT # 2.6 10*3/uL (2.3-7.9); NEUT % 46.8 % (47.0-73.0); PLATELET COUNT AUTOMATED 195 10*3/uL (130-400); RED BLOOD COUNT 4.13 10*6/uL (4.50-5.90); RED CELL DISTRI WIDTH 13.8 % (0-14.5); WHITE BLOOD COUNT 5.5 10*3/uL (4.8-10.8)
[2019-05-21 00:30] LABS: ALBUMIN 3.6 gm/dl (3.1-4.5); ALKALINE PHOSPHATASE 102 U/L (45-117); BUN 25 mg/dl (7-24); CHLORIDE 104 mmol/L (98-107); CREATININE 1.11 mg/dL (0.70-1.30); POTASSIUM 4.1 mmol/L (3.5-5.1); SGOT/AST 21 IU/L (3-35); SGPT/ALT 25 U/L (12-78); SODIUM 138 mmol/L (136-145); TOTAL PROTEIN 6.9 gm/dL (6.4-8.2); TROPONIN I < 0.015 ng/ml (<0.045)
[2019-05-21 01:41] VITALS: BP 109/63
== END 2019-05-21 02:06 | disposition home or self-care (01) ==
LOC: ED 21:41
PROVIDERS: Physician Assistant
DX: I10 Essential (primary) hypertension (principal); Z79.899 Other long term (current) drug therapy; Z79.82 Long term (current) use of aspirin; Z79.01 Long term (current) use of anticoagulants